=== PATIENT | male | born 1995 | race Caucasian/White ===

== ENCOUNTER 2018-04-09 09:32 | Emergency (ER) | payer OTHER ==
--- NOTE | 2018-04-09 10:23 | RAD ---
UPRIGHT PORTABLE CHEST 1 VIEW: Date: 04/09/18 HISTORY: 23-year-old male with chest injury following fall off of skateboard. FINDINGS: Heart size is normal. The lungs are clear. No pneumonia, edema, or pleural effusion. IMPRESSION: No acute intrathoracic disease. POS: [facility]
[2018-04-09] MEDS ORDERED: Ondansetron HCl/PF 4 MG/2 ML Vial ONE (10:38)
[2018-04-09] MEDS ORDERED: HYDROmorphone 0.5 MG/0.5 ML SYRINGE ONE (10:38)
[2018-04-09 10:48] LABS: #Basophils 0.1 thou/uL (0.0-0.2); #Lymphocytes 1.5 thou/uL (1.20-3.40); #Monocytes 0.5 thou/uL (0.11-0.59); %Basophils 1.3 % (0.0-1.0); %Eosinophils 0.4 % (0.0-10.0); %Lymphocytes 24.8 % (21.0-51.0); %Monocytes 8.7 % (0.0-10.0); %Neutrophils 64.8 % (42.0-75.0); Hemoglobin 16.7 g/dL (14.0-18.0); Mean Corpuscular HGB CONC 35.4 g/dL (32.0-36.0); Mean Corpuscular Hemoglobin 32.2 pg (27.0-31.0); Mean Corpuscular Volume 90.8 fL (78.0-98.0); Mean Platelet Volume 6.2 fL (7.4-10.4); Platelet Count 292 thou/uL (130-400); RBC Distribution Width 11.2 % (11.5-14.5); Red Blood Cell (RBC) Count 5.18 mill/uL (4.70-6.10); White Blood Cell (WBC) Count 6.2 thou/uL (4.8-10.8)
--- NOTE | 2018-04-09 11:04 | CT ---
CT OF THE ABDOMEN AND PELVIS WITH CONTRAST: Comparison: None. History: Fall from skateboard landing on right side with right sided abdominal pain and right sided a bdominal trauma. Technique: Multiple contiguous axial images were obtained in a CT of the abdomen and pelvis with cont rast. Coronal reformats were performed. FINDINGS: The liver, gallbladder, kidneys, adrenal glands, spleen, and pancreas are unremarkable. No free air, free fluid, or stranding changes are seen in the abdomen or pelvis. The large and small bowel are unremarkable. The appendix is normal. No abdominal or pelvic lymphadeno javier are seen. The osseous structures, visualized inferior thorax, and abdominal wall soft tissues are unremarkable. IMPRESSION: No evidence of acute intraabdominal/pelvic abnormality. POS: [facility]
--- NOTE | 2018-04-09 11:48 | RAD ---
4 VIEWS RIGHT ELBOW: Date: 04/09/18 COMPARISON: None. HISTORY: Right elbow pain after falling off a skateboard at [address] MPH. FINDINGS: Four views of the right elbow show no evidence of acute fracture or dislocation. No elbow effusion is seen. No degenerative changes are seen. IMPRESSION: No evidence of acute osseous abnormality. POS: [facility]
[2018-04-09] MEDS ORDERED: ISOVUE-370 76%-LOCM 1 ML ONE (14:07)
== END 2018-04-09 12:03 | disposition home or self-care (01) ==
LOC: ERS 09:32
DX: S20.211A Contusion of right front wall of thorax, initial encounter (principal); S20.212A Contusion of left front wall of thorax, initial encounter; S30.810A Abrasion of lower back and pelvis, initial encounter; S40.819A Abrasion of unspecified upper arm, initial encounter; S80.219A Abrasion, unspecified knee, initial encounter; V00.131A Fall from skateboard, initial encounter
CPT/HCPCS: 36415; 71045; 74177; 85025; J1170; J2405